=== PATIENT | female | born 1980 | race Caucasian/White ===

== ENCOUNTER → 2018-08-20 | Outpatient (REF) | payer MEDICAID ==
[~2018-08-20] MED LIST: AMOXICILLIN875 MG PO; FLEXERIL OR; GREEN TEA; NO HOME MEDS; TORADOL OR; VITAMIN B-121000 MCG PO; ZITHROMAX500 MG PO; ZOFRAN4 MG/TAB PO; [UNRECOGNIZED DRUG - OTHER] OR
[2018-08-20 16:49] LABS: HEMOGLOBIN 10.2 g/dl (12.0-16.0); IMMATURE GRANULOCYTES 0.3 % (0.0-5.0); MEAN CELL VOLUME 76.9 fL CALC (80.0-100.0); MEAN CORPUSCULAR HGB 24.5 pG CALC (26.0-32.0); MEAN CORPUSCULAR HGB CONC 31.9 g/L CALC (32.0-36.0); NEUT# 4.41 thou/uL (2.00-7.15); RED BLOOD COUNT 4.16 mill/uL (4.20-5.60); RED CELL DISTRI WIDTH 16.1 % (11.5-15.5)
[2018-08-20 16:50] LABS: ALBUMIN 3.8 g/dL (3.2-5.0); ALKALINE PHOSPHATASE 63 u/l (38-126); ANION GAP 12 (6-22 (CALC)); BILIRUBIN, TOTAL 0.2 mg/dL (0.0-1.4); BUN 10 mg/dL (7-17); BUN/CREATININE RATIO 13 (12-20 (CALC)); CARBON DIOXIDE 22 mmol/l (22-30); CHLORIDE 113 mmol/l (95-108); CREATININE 0.7 mg/dL (0.5-1.0); GFR > 60 ML/MIN (>=60 (CALC)); GFR FOR AFR.AMER. > 60 ML/MIN (>=60 (CALC)); POTASSIUM 4.4 mmol/l (3.5-5.1); SGOT/AST 13 u/l (14-36); SODIUM 142 mmol/l (137-146); TOTAL PROTEIN 6.8 g/dL (6.3-8.2)
== END | disposition home or self-care (01) ==
LOC: LAB 14:01
PROVIDERS: ATTEND Internal Medicine Pulmonary Disease
DX: D64.9 Anemia, unspecified (principal); R05 Cough

== ENCOUNTER → 2018-08-23 | Outpatient (REF) | payer MEDICAID | END | disposition home or self-care (01) | LOC: CT 16:00 → ULTRASND 17:24 → DI 17:30 | PROVIDERS: ATTEND Internal Medicine Pulmonary Disease | DX: R06.02 Shortness of breath (principal) ==

== ENCOUNTER 2020-04-21 12:45 | Observation (INO) | payer SELFPAY ==
[~2020-04-21] VITALS: Ht 162.6 cm; Wt 83.5 kg
--- NOTE | 2020-04-21 12:47 | NUR ---
PT NOT IN WAITING ROOM WHEN CALLED.
--- NOTE | 2020-04-21 13:00 | NUR ---
PT TO ROOM WITH A STEADY GAIT.
[2020-04-21] MEDS ORDERED: TIZANIDINE HCL4 MG PO (13:46)
[2020-04-21] MEDS ORDERED: TOPAMAX50 MG PO (13:46)
--- NOTE | 2020-04-21 13:46 | NUR ---
PT PRESENTS WITH COMPLAINTS THAT SHE FELT PARESTHESIA OFF AND ON FOR THE LAST FEW DAYS THAT STARTED ON THE LEFT SIDE OF FACE AND SPREAD THOUGHOUT THE BODY. PT AOX4. NIH 0. PT DENIES IT HAPPENING NOW. PT DENIES SOB OR CHEST PAIN. THERE IS AN INTERM CHEST PRESSURE THAT OCCURES. WILL CONTINUE TO MONITOR.
[2020-04-21 13:48] LABS: URINE BILIRUBIN - DIPSTICK NEGATIVE (NEGATIVE); URINE BLOOD DIPSTICK LARGE (NEGATIVE); URINE COLOR YELLOW; URINE GLUCOSE - DIPSTICK NEGATIVE (NEGATIVE); URINE KETONE NEGATIVE (NEGATIVE); URINE LEUK ESTERASE NEGATIVE (NEGATIVE); URINE NITRITE - DIPSTICK NEGATIVE (Negative); URINE PROTEIN - DIPSTICK NEGATIVE (NEG-TRACE); URINE SPECIFIC GRAVITY 1.025; URINE UROBILINOGEN - DIPSTICK 0.2 E.U./dL (0.2)
[2020-04-21 13:52] LABS: HEMATOCRIT 30.2 % (37.0-47.0); HEMOGLOBIN 9.3 g/dl (12.0-16.0); IMMATURE GRANULOCYTES 0.2 % (0.0-5.0); MEAN CORPUSCULAR HGB 20.9 pG CALC (26.0-32.0); MEAN CORPUSCULAR HGB CONC 30.8 g/dL CAL (32.0-36.0); NEUT# 3.57 thou/uL (2.00-7.15); RED BLOOD COUNT 4.45 mill/uL (4.20-5.60); RED CELL DISTRI WIDTH 20.4 % (11.5-15.5)
[2020-04-21 13:54] LABS: URINE SQUAMOUS EPITHELIAL CELL FEW EPI/hpf (0-FEW)
[2020-04-21 13:56] LABS: MEAN CELL VOLUME 67.9 fL CALC (80.0-100.0)
[2020-04-21 14:10] LABS: ALBUMIN 4.3 g/dL (3.2-5.0); ALKALINE PHOSPHATASE 71 u/l (38-126); ANION GAP 13 (6-22 (CALC)); BUN 7 mg/dL (7-17); BUN/CREATININE RATIO 9 (12-20 (CALC)); CARBON DIOXIDE 19 mmol/l (22-30); CHLORIDE 111 mmol/l (95-108); CREATININE 0.8 mg/dL (0.5-1.0); GFR > 60 ML/MIN (>=60 (CALC)); GFR FOR AFR.AMER. > 60 ML/MIN (>=60 (CALC)); POTASSIUM 3.7 mmol/l (3.5-5.1); SGOT/AST 16 u/l (14-36); SODIUM 140 mmol/l (137-146); TOTAL PROTEIN 7.5 g/dL (6.3-8.2)
[2020-04-21 14:20] LABS: ACT PARTIAL THROMBO TIME 27.3 SECONDS (20.0-32.5); PROTHROMBIN TIME 10.8 SECONDS (9.0-12.5)
[2020-04-21 14:26] LABS: BILIRUBIN, TOTAL 0.4 mg/dL (0.0-1.4)
--- NOTE | 2020-04-21 14:30 | NUR ---
PT RESTING ON STRETCHER WITH CALL LIGHT WITHIN REACH. SIGNIFICANT OTHER AT BEDSIDE. DENIES ANY NEEDS AT THIS TIME
--- NOTE | 2020-04-21 15:30 | NUR ---
PT REMAINS AT RADIOLOGY
--- NOTE | 2020-04-21 16:20 | NUR ---
PT RECONNECTED TO MONITORING EQUIPMENT. PT DENIES ANY NEEDS, CALL LIGHT WITHIN REACH. PT REQUESTED FOR TO COME BACK, REQUEST GRANTED
--- NOTE | 2020-04-21 17:30 | NUR ---
PT RESTING ON STRETCHER WITH CALL LIGHT WITHIN REACH AND FAMILY AT BEDSIDE. PT UPDATED ON PENDING ADMISSION AND PLAN OF CARE. PT VERBALIZED UNDERSTANDING.
--- NOTE | 2020-04-21 18:45 | NUR ---
PT TRANSPORTED TO [facility] SURG STABLE AND IN NO DISTRESS. CARE ASSUMED TO ANDREIA. Admission Note Report Given to: Transported by: Wheelchair X Stretcher Transported with: X Nurse Transporter X Patent IV O2 X Steel Heater Location: ICU X MS2
[2020-04-21 18:55] VITALS: BP 135/84
--- NOTE | 2020-04-21 19:43 | NUR ---
PT ASSESSEMENT COMPLETED AT THIS TIME. NEURO'S INTACT, PT TALKING CLEARLY. DENIES PAIN/N/V. PUPILS REACTIVE AND EQUAL. WILL CONTINUE TO MONITOR. PT ENCOURAGED TO CALL NEEDS ARISE.
--- NOTE | 2020-04-21 21:25 | NUR ---
NEW ORDERS RECEIVED, IVF KVO'D AND PT INSTRUCTED TO LAY IN PRONE POSITION. UPON ENTERING ROOM, PT SITTING ON SIDE OF THE BED EATING ICE. NO S/O DISTRESS NOTED. I EDUCATED PT ON PHYSICIANS ORDERS AND THE REASONING BEHIND IT. SHE VERBALIZED UNDERSTANDING AND CONTINUE TO SIT ON SIDE OF THE BED. I ASKED PT IF THERE WAS ANYTHING SHE NEEDED ME TO DO TO ASSIST, SHE SHOOK HER HEAD NO. I PROVIDED AN EXTRA PILLOW FOR COMFORT IN PRONING, PT LEFT SITTING ON SIDE OF THE BED.
--- NOTE | 2020-04-21 21:54 | NUR ---
PT MEDICATED ORDERS PROVIDE. DENIES ANY TINGLING, DIZZINESS OR SOB. PT TALKATIVE AND STABLE. NO S/O DISTRESS. DENIES ANY OTHER NEEDS AND ENCOURAGED TO CALL NEEDS ARISE.
[2020-04-22 00:05] VITALS: BP 131/76
--- NOTE | 2020-04-22 03:44 | NUR ---
PT AWAKE WITH LIGHTS AND TV ON. V/S ASSESSED AND NEURO'S ASSESSMENT COMPLETED AT THIS TIME. PT DENIES ANY PAIN/N/V/TINGLING/DIZZINESS OR ANY OTHER DISTRESS. SHE DENIES ANY FOOD/DRINK ITEMS OR OTHER NEEDS AT THIS TIME. ENCOURAGED PT TO CALL IF ANY NEEDS ARISE.
[2020-04-22 03:45] VITALS: BP 121/76
[2020-04-22] MEDS ORDERED: FERR SULFATE325 MG PO (11:10)
[2020-04-22] MEDS ORDERED: ASPIRIN ADULT L81 M2 PO (11:11)
[2020-04-22] MEDS ORDERED: VITAMIN B-121000 MCG PO (11:11)
[2020-04-22] MEDS ORDERED: METOPROL TAR25 M1 PO (11:14)
[2020-04-22 11:22] VITALS: BP 136/68
--- NOTE | 2020-04-22 13:24 | NUR ---
PT IS ALERT AND ORIENTED AND ABLE TO MAKE NEEDS KNOWN. SKIN WARM TOT OTUCH. DENIES PAIN OR DISCOMFORT. MEDICATIONS GIVEN AND TOLERATED WELL. MD IN TO SEE PT AND NEW ORDERS NOTED. PT TO DISCHARGE HOME TODAY. DENIES NUMBNESS AND TIBLING. CURRENTLY ON MENSTRUAL CYCLE.
[2020-04-22 13:39] VITALS: BP 136/68
--- NOTE | 2020-04-22 13:40 | NUR ---
PT HAS VENOFER STARTED AND NO DISTRESS NOTED AT THIS TIME.
--- NOTE | 2020-04-22 14:01 | NUR ---
PT TOLERATED IRON SUCROSE WELL. NO COMPLICATIONS NOTED AND VITALS ARE STABLE
--- NOTE | 2020-04-22 14:24 | NUR ---
PT DISCHARGED HOME. ALL PERTINENT BELONGINGS AND ALL PAPERS SIGNED AND DISCHARGE INSTRUCTIONS REVIEWS WITH PT AND STATES SHE UNDERSTANDS.
== END 2020-04-22 14:24 | disposition home or self-care (01) | DRG 69 ==
LOC: ED 12:45 → ED-I 17:04 → ED 17:11 → ED-I 17:15 → MS2 17:22 → ED-I 17:25 → MS2 17:52
PROVIDERS: Student in an Organized Health Care Education/Training Program; ADMIT Internal Medicine; ATTEND Internal Medicine
DX: G45.9 Transient cerebral ischemic attack, unspecified (principal); I47.1 Supraventricular tachycardia; D50.9 Iron deficiency anemia, unspecified; E53.8 Deficiency of other specified B group vitamins; J44.9 Chronic obstructive pulmonary disease, unspecified; E88.01 Alpha-1-antitrypsin deficiency; Z82.3 Family history of stroke; Z20.828 Contact with and (suspected) exposure to other viral communicable diseases
CPT/HCPCS: G0378; J1650; J1756; Q9967

== ENCOUNTER 2020-04-28 13:51 | Emergency (ER) | payer SELFPAY ==
[~2020-04-28] VITALS: Ht 165.1 cm; Wt 81.8 kg
[~2020-04-28 13:51] MED LIST changes: +ASPIRIN ADULT L81 M2 PO; +FERR SULFATE325 MG PO; +METOPROL TAR25 M1 PO; +TIZANIDINE HCL4 MG PO; +TOPAMAX50 MG PO
[2020-04-28 14:40] LABS: HEMATOCRIT 29.5 % (37.0-47.0); HEMOGLOBIN 9.1 g/dl (12.0-16.0); IMMATURE GRANULOCYTES 0.5 % (0.0-5.0); MEAN CELL VOLUME 70.1 fL CALC (80.0-100.0); MEAN CORPUSCULAR HGB 21.6 pG CALC (26.0-32.0); MEAN CORPUSCULAR HGB CONC 30.8 g/dL CAL (32.0-36.0); NEUT# 4.01 thou/uL (2.00-7.15); RED BLOOD COUNT 4.21 mill/uL (4.20-5.60); RED CELL DISTRI WIDTH 22.9 % (11.5-15.5)
[2020-04-28 15:06] LABS: ALBUMIN 4.4 g/dL (3.2-5.0); ALKALINE PHOSPHATASE 63 u/l (38-126); ANION GAP 13 (6-22 (CALC)); BILIRUBIN, TOTAL 0.3 mg/dL (0.0-1.4); BUN 13 mg/dL (7-17); BUN/CREATININE RATIO 17 (12-20 (CALC)); CHLORIDE 108 mmol/l (95-108); CREATININE 0.8 mg/dL (0.5-1.0); GFR > 60 ML/MIN (>=60 (CALC)); GFR FOR AFR.AMER. > 60 ML/MIN (>=60 (CALC)); LIPASE 94 u/l (23-300); POTASSIUM 3.6 mmol/l (3.5-5.1); SGOT/AST 16 u/l (14-36); SODIUM 140 mmol/l (137-146); TOTAL PROTEIN 7.8 g/dL (6.3-8.2)
[2020-04-28 15:46] LABS: CARBON DIOXIDE 23 mmol/l (22-30)
[2020-04-28 18:09] VITALS: BP 131/71
== END 2020-04-28 18:20 | disposition home or self-care (01) | DRG 313 ==
LOC: ED 13:51
DX: R07.9 Chest pain, unspecified (principal); J44.9 Chronic obstructive pulmonary disease, unspecified

== ENCOUNTER 2020-05-12 20:18 | Emergency (ER) | payer SELFPAY ==
[~2020-05-12] VITALS: Ht 12.7 cm; Wt 84.1 kg
[2020-05-12 22:01] LABS: URINE BILIRUBIN - DIPSTICK NEGATIVE (NEGATIVE); URINE BLOOD DIPSTICK NEGATIVE (NEGATIVE); URINE COLOR YELLOW; URINE GLUCOSE - DIPSTICK NEGATIVE (NEGATIVE); URINE KETONE NEGATIVE (NEGATIVE); URINE LEUK ESTERASE NEGATIVE (NEGATIVE); URINE NITRITE - DIPSTICK NEGATIVE (Negative); URINE PROTEIN - DIPSTICK NEGATIVE (NEG-TRACE); URINE UROBILINOGEN - DIPSTICK 0.2 E.U./dL (0.2)
[2020-05-12 22:02] LABS: HEMATOCRIT 32.3 % (37.0-47.0); HEMOGLOBIN 10.4 g/dl (12.0-16.0); IMMATURE GRANULOCYTES 0.8 % (0.0-5.0); MEAN CORPUSCULAR HGB 24.2 pG CALC (26.0-32.0); MEAN CORPUSCULAR HGB CONC 32.2 g/dL CAL (32.0-36.0); NEUT# 5.49 thou/uL (2.00-7.15); RED BLOOD COUNT 4.29 mill/uL (4.20-5.60); RED CELL DISTRI WIDTH 26.4 % (11.5-15.5)
[2020-05-12 22:05] LABS: MEAN CELL VOLUME 75.3 fL CALC (80.0-100.0)
[2020-05-12 22:17] LABS: ALBUMIN 3.9 g/dL (3.2-5.0); ALKALINE PHOSPHATASE 59 u/l (38-126); ANION GAP 16 (6-22 (CALC)); BILIRUBIN, TOTAL 0.4 mg/dL (0.0-1.4); BUN 11 mg/dL (7-17); BUN/CREATININE RATIO 15 (12-20 (CALC)); CARBON DIOXIDE 20 mmol/l (22-30); CHLORIDE 108 mmol/l (95-108); CREATININE 0.8 mg/dL (0.5-1.0); GFR > 60 ML/MIN (>=60 (CALC)); GFR FOR AFR.AMER. > 60 ML/MIN (>=60 (CALC)); POTASSIUM 3.9 mmol/l (3.5-5.1); SGOT/AST 14 u/l (14-36); SODIUM 139 mmol/l (137-146); TOTAL PROTEIN 6.9 g/dL (6.3-8.2)
[2020-05-12 22:20] LABS: ACT PARTIAL THROMBO TIME 27.2 SECONDS (20.0-32.5); PROTHROMBIN TIME 10.7 SECONDS (9.0-12.5)
[2020-05-12 22:27] LABS: MYOGLOBIN 17 ng/mL (0 - 62)
[2020-05-12 23:59] VITALS: BP 129/68
== END 2020-05-12 23:59 | disposition home or self-care (01) | DRG 92 ==
LOC: ED 20:18
PROVIDERS: Emergency Medicine
DX: R20.2 Paresthesia of skin (principal); I47.1 Supraventricular tachycardia; J44.9 Chronic obstructive pulmonary disease, unspecified

== ENCOUNTER 2020-07-07 21:50 | Observation (INO) | payer SELFPAY ==
[~2020-07-07] VITALS: Ht 165.1 cm; Wt 82.7 kg
--- NOTE | 2020-07-07 21:51 | NUR ---
BY EMS TO ROOM
[2020-07-07 22:38] LABS: HEMATOCRIT 32.5 % (37.0-47.0); HEMOGLOBIN 10.6 g/dl (12.0-16.0); IMMATURE GRANULOCYTES 0.2 % (0.0-5.0); MEAN CELL VOLUME 83.1 fL CALC (80.0-100.0); MEAN CORPUSCULAR HGB 27.1 pG CALC (26.0-32.0); MEAN CORPUSCULAR HGB CONC 32.6 g/dL CAL (32.0-36.0); NEUT# 6.73 thou/uL (2.00-7.15); RED BLOOD COUNT 3.91 mill/uL (4.20-5.60); RED CELL DISTRI WIDTH 15.9 % (11.5-15.5)
[2020-07-07 22:55] LABS: ALBUMIN 3.9 g/dL (3.2-5.0); ALKALINE PHOSPHATASE 58 u/l (38-126); ANION GAP 13 (6-22 (CALC)); BILIRUBIN, TOTAL 0.3 mg/dL (0.0-1.4); BUN 11 mg/dL (7-17); BUN/CREATININE RATIO 13 (12-20 (CALC)); CARBON DIOXIDE 20 mmol/l (22-30); CHLORIDE 109 mmol/l (95-108); CREATININE 0.9 mg/dL (0.5-1.0); GFR > 60 ML/MIN (>=60 (CALC)); GFR FOR AFR.AMER. > 60 ML/MIN (>=60 (CALC)); POTASSIUM 3.2 mmol/l (3.5-5.1); SGOT/AST 19 u/l (14-36); SODIUM 139 mmol/l (137-146); TOTAL PROTEIN 6.9 g/dL (6.3-8.2)
[2020-07-07] MEDS ORDERED: METOPROL TAR25 MG PO (22:55)
[2020-07-07 22:59] LABS: D-DIMER 0.52 mg/L (0.19-0.60)
[2020-07-07 23:03] LABS: INTERNATIONAL NORMALIZED RATIO 1.1 RATIO (0.7-1.3); PROTHROMBIN TIME 11.3 SECONDS (9.0-12.5)
--- NOTE | 2020-07-07 23:04 | NUR ---
PT MEDICATED. ASK THAT I CALL THE OUTCOMES SPECIALIST TO LET HER KNOW THAT SHE IS GOING TO BE ADMITTED AND WILL NOT BE IN IN THE AM.
[2020-07-07 23:07] LABS: MYOGLOBIN 18 ng/mL (0 - 62)
--- NOTE | 2020-07-07 23:40 | NUR ---
DENIES CP BUT STATES STOMACH IS UPSET. HX OF GERD...TAKES OMEPRAZOLE. DR NOTIFIED.
[2020-07-08 00:41] LABS: URINE BILIRUBIN - DIPSTICK NEGATIVE (NEGATIVE); URINE BLOOD DIPSTICK NEGATIVE (NEGATIVE); URINE COLOR YELLOW; URINE GLUCOSE - DIPSTICK NEGATIVE (NEGATIVE); URINE KETONE NEGATIVE (NEGATIVE); URINE LEUK ESTERASE NEGATIVE (NEGATIVE); URINE NITRITE - DIPSTICK NEGATIVE (Negative); URINE PROTEIN - DIPSTICK NEGATIVE (NEG-TRACE); URINE SPECIFIC GRAVITY 1.015; URINE UROBILINOGEN - DIPSTICK 0.2 E.U./dL (0.2)
--- NOTE | 2020-07-08 01:33 | NUR ---
AWAITING ADMIT BED ASSIGNMENT. NO C/O.
--- NOTE | 2020-07-08 01:55 | NUR ---
REPORT TO VNIOD/NURSE/MED-SURG.
--- NOTE | 2020-07-08 02:03 | NUR ---
TO FLOOR VIA STRETCHER. MASKED FOR COVID PRECAUTIONS. POCKET MONITOR IN PLACE. PT DENIES PAIN BUT STATES THAT SHE GETS SOME INTERMITTENT TIGHTNESS. ABD PAIN GONE. PWD. NAD. VSS. PT AMBUALTORY TO BED UPON ARRIVAL TO ROOM.
--- NOTE | 2020-07-08 02:06 | NUR ---
PT ARRIVED TO FLOOR VIA STRETCHER ACCOMPANIED BY ER STAFF. PT ALERT AND ORIENTED. NO APPARENT DISTRESS NOTED. PT DENIES ANY CP OR SOB AT THIS TIME. RESPIRATIONS EVEN AND UNLABORED. PT AMBULATED FROM STRETCHER TO BED WITH STEADY GAIT. SKIN INTACT. TEDS APPLIED. VSS. COMMERCIAL LINES ACCOUNT MANAGER IN PLACE. DISCUSSED POC AND PT ORIENTED TO ROOM AND CALL LIGHT SYSTEM. PT VERBALIZED UNDERSTANDING. CALL LIGHT WITHIN REACH. WILL CONTINUE TO MONITOR.
[2020-07-08 02:19] VITALS: BP 132/87
[2020-07-08 05:10] VITALS: BP 107/70
--- NOTE | 2020-07-08 06:04 | NUR ---
NITRO PASTE APPLIED TO RIGHT UPPER CHEST WALL. PT C/O OF TIGHTNESS ON RIGHT SIDE AT THIS TIME. DENIES ANY SOB OR PALPITATIONS. PT DENIES ANY CURRENT WANTS OR NEEDS. CALL LIGHT WITHIN REACH. WILL CONTINUE TO MONITOR.
[2020-07-08 07:42] VITALS: BP 123/76
--- NOTE | 2020-07-08 07:42 | NUR ---
PT SITTING IN BED. A&O X3. NO DISTRESS NOTED. NITRO PATCH TO RT CHEST IN PLACE, PLACED THIS MORNING BY FATUMA HESTER. PER PT CP IS "NOT REALLY THERE" AT THIS TIME. ASSESSMENT COMPLETED. DISCUSSED POC. CALL LIGHT IN REACH. CONTINUE TO MONITOR.
[2020-07-08 11:29] VITALS: BP 123/74
--- NOTE | 2020-07-08 12:24 | NUR ---
PT SITTING IN BED WITH FAMILY AT BEDSIDE. NO DISTRESS OR NEEDS AT THIS TIME. CALL LIGHT IN REACH. CONTINUE TO MONITOR.
[2020-07-08 15:10] VITALS: BP 119/59
[2020-07-08] MEDS ORDERED: CARDIZEM CD120 MG PO (17:18)
--- NOTE | 2020-07-08 18:11 | NUR ---
Discharge instructions given. Patient verbalizes understanding of same. Discharged in stable condition via Wheelchair to Home with staff and family member. All belongings sent with pt.
== END 2020-07-08 18:11 | disposition home or self-care (01) | DRG 313 ==
LOC: ED 21:50 → ED-I 07-08 00:29 → ED 07-08 00:44 → MS2 07-08 00:45
PROVIDERS: Emergency Medicine; ADMIT Internal Medicine; ATTEND Internal Medicine
DX: R07.9 Chest pain, unspecified (principal); I47.1 Supraventricular tachycardia; J44.9 Chronic obstructive pulmonary disease, unspecified; E88.01 Alpha-1-antitrypsin deficiency; Z20.828 Contact with and (suspected) exposure to other viral communicable diseases
CPT/HCPCS: G0378

== ENCOUNTER 2020-07-26 17:41 | Emergency (ER) | payer OTHER ==
[~2020-07-26] VITALS: Ht 165.1 cm; Wt 81.0 kg
[~2020-07-26 17:41] MED LIST changes: +CARDIZEM CD120 MG PO; +METOPROL TAR25 MG PO
[2020-07-26 19:26] VITALS: BP 141/87
== END 2020-07-26 19:26 | disposition home or self-care (01) | DRG 605 ==
LOC: ED 17:41
DX: S80.01XA Contusion of right knee, initial encounter (principal); J44.9 Chronic obstructive pulmonary disease, unspecified; I48.91 Unspecified atrial fibrillation; W01.0XXA Fall on same level from slipping, tripping and stumbling without subsequent striking against object, initial encounter; Y92.89 Other specified places as the place of occurrence of the external cause; Y99.0 Civilian activity done for income or pay

== ENCOUNTER 2021-02-11 02:09 | Emergency (ER) | payer SELFPAY ==
[~2021-02-11] VITALS: Ht 165.1 cm; Wt 84.0 kg
[2021-02-11] MEDS ORDERED: TENORMIN25 M1 PO (02:39)
[2021-02-11 02:46] LABS: URINE BILIRUBIN - DIPSTICK NEGATIVE (NEGATIVE); URINE BLOOD DIPSTICK NEGATIVE (NEGATIVE); URINE COLOR YELLOW; URINE GLUCOSE - DIPSTICK NEGATIVE (NEGATIVE); URINE KETONE NEGATIVE (NEGATIVE); URINE PROTEIN - DIPSTICK NEGATIVE (NEG-TRACE); URINE SPECIFIC GRAVITY <=1.005; URINE UROBILINOGEN - DIPSTICK 0.2 E.U./dL (0.2)
[2021-02-11 02:48] LABS: IMMATURE GRANULOCYTES 0.2 % (0.0-5.0); MEAN CORPUSCULAR HGB 20.1 pG CALC (26.0-32.0); MEAN CORPUSCULAR HGB CONC 29.1 g/dL CAL (32.0-36.0); NEUT# 5.47 thou/uL (2.00-7.15); RED BLOOD COUNT 3.64 mill/uL (4.20-5.60); RED CELL DISTRI WIDTH 19.1 % (11.5-15.5)
[2021-02-11 02:49] LABS: HEMATOCRIT 25.1 % (37.0-47.0); HEMOGLOBIN 7.3 g/dl (12.0-16.0)
[2021-02-11 02:57] LABS: ALKALINE PHOSPHATASE 72 u/l (38-126); ANION GAP 12 (6-22 (CALC)); BILIRUBIN, TOTAL 0.4 mg/dL (0.0-1.4); BUN 12 mg/dL (7-17); BUN/CREATININE RATIO 14 (12-20 (CALC)); CARBON DIOXIDE 21 mmol/l (22-30); CHLORIDE 107 mmol/l (95-108); CREATININE 0.9 mg/dL (0.5-1.0); GFR > 60 ML/MIN (>=60 (CALC)); GFR FOR AFR.AMER. > 60 ML/MIN (>=60 (CALC)); POTASSIUM 3.7 mmol/l (3.5-5.1); SGOT/AST 15 u/l (14-36); SODIUM 137 mmol/l (137-146); TOTAL PROTEIN 7.1 g/dL (6.3-8.2)
[2021-02-11 03:09] LABS: MYOGLOBIN 13 ng/mL (0 - 62)
[2021-02-11 03:13] LABS: URINE BACTERIA FEW hpf; URINE LEUK ESTERASE SMALL (NEGATIVE); URINE MUCUS FEW hpf (NONE-FEW); URINE NITRITE - DIPSTICK NEGATIVE (Negative); URINE SQUAMOUS EPITHELIAL CELL FEW EPI/hpf (0-FEW); URINE WBC 20-50 WBC/hpf (0-5)
[2021-02-11 03:18] LABS: ACT PARTIAL THROMBO TIME 25.2 SECONDS (20.0-32.5)
[2021-02-11] MEDS ORDERED: CHROMAGEN1 CAP PO (04:14)
[2021-02-11 04:18] VITALS: BP 128/65
== END 2021-02-11 04:18 | disposition home or self-care (01) | DRG 812 ==
LOC: ED 02:09
PROVIDERS: Family Medicine
DX: D50.9 Iron deficiency anemia, unspecified (principal); Q04.8 Other specified congenital malformations of brain; I47.1 Supraventricular tachycardia; J44.9 Chronic obstructive pulmonary disease, unspecified; E88.01 Alpha-1-antitrypsin deficiency; I48.91 Unspecified atrial fibrillation; Z20.822 Contact with and (suspected) exposure to COVID-19